=== PATIENT | female | born 1960 ===

== ENCOUNTER 2021-06-27 16:22 | Observation (INO) ==
[2021-06-27 20:13] LABS: Hematocrit (blood only) 46.6 % (37-47); Hemoglobin 14.9 g/dL (12.0-16.0); Mean Corpuscular Hemoglobin 28.4 pg (25-34); Mean Corpuscular Volume 88.9 fL (80-100); Mean Platelet Volume 10.8 fL (7.4-10.4); Platelet Count 333 K/uL (130-400); RDW Coefficient of Variation 13.9 % (11.5-14.5); RDW Standard Deviation 45.7 fL (36.4-46.3); Red Blood Count 5.24 M/uL (4.2-5.4); White Blood Count 22.67 K/uL (4.8-10.8)
[2021-06-27 20:44] LABS: Albumin Level 3.6 gm/dl (3.4-5.0); BUN Creatinine Ratio 12.4 (10-20); Calcium 9.9 mg/dl (8.5-10.1); Creatinine Clr Calc Pharmacy 72.8 ml/min; Est GFR (African American) 83.3 ml/min; Est GFR (Non-African American) 71.9 ml/min; Potassium 4.2 mmol/L (3.5-5.1)
[2021-06-27 20:46] LABS: Basophils # (auto) 0.01 K/uL (0-0.2); Immature Granulocytes # (auto) 0.08 K/uL (0.00-0.02); Immature Granulocytes % (auto) 0.4 %; Lymphocytes # (auto) 0.67 K/uL (1.2-3.4); Monocytes # (auto) 1.24 K/uL (0.11-0.59); Monocytes % (auto) 5.5 %; Neutrophils # (auto) 20.67 K/uL (1.4-6.5); Neutrophils % (auto) 91.1 %
[2021-06-27 20:47] LABS: Albumin Globulin Ratio 0.8 (0.9-2); Bilirubin,Total 0.8 mg/dl (0.2-1); Globulin 4.6 gm/dl (2.5-4.0); Total Protein 8.2 gm/dl (6.4-8.2)
--- NOTE | 2021-06-27 21:43 | Emergency Department Note ---
Impression & Plan Acute cholecystitis ED Provider Note NAME: MEKHI DAVID AGE: 60 SEX: F : 1960 ARRIVES VIA: Walk-In INFORMANT: patient, ED PROVIDER(S): Gagandeep Casarez MD Chief Complaint: Abdominal pain, nausea vomiting HPI: Patient does present with the above symptoms. The patient states that this initially started 2 days prior but it has gotten progressively worse is in the upper abdomen and is constant now. Patient describes it as burning. the patient initially had some diarrhea but subsequently had nausea and associated vomiting x2. No blood in the urine or vomit. The patient denies any alcohol or tobacco use. Patient vaccinated for Covid. Patient did have some chest pain with the burning abdominal pain in the upper abdomen. Patient did try some Tums but without improvement in symptoms. Patient does have a prior history of appendectomy but no other abdominal surgeries. Patient denies any recent changes in diet or sick contacts. Patient denies upper respiratory symptoms. Patient denies any rashes, dysuria, hematuria or leg swelling. ROS: See HPI for pertinent positives and negatives. A total of 10 systems were reviewed and otherwise negative. Past medical history: See below Surgical history: See below Social history: See below Physical Exam: GENERAL: Mildly uncomfortable appearance, wearing glasses, wearing a mask, non- toxic. EYE EXAM: Normal conjunctiva. PERRL, no anisocoria and EOM's grossly intact w/o pain. NECK: Supple, no nuchal rigidity, no adenopathy, non-tender. No signs of meningismus. LUNGS: Clear to auscultation. Normal chest wall mechanics. HEART: Tachycardic and regular, no MRG. ABDOMEN: Abdomen soft, right upper quadrant and epigastric pain without pe ritonitis, no lower abdominal pain, normo-active bowel sounds, no masses, no rebound or guarding. BACK: No CVA TTP. SKIN: No rashes and no bruising. UPPER EXTREMITIES: Upper extremities are grossly normal. LOWER EXTREMITIES: Grossly normal, no edema. NEURO EXAM: A&O x3, cranial nerves II-XII grossly intact, normal speech, moves all 4 extremities on command w/o issue. Differential diagnoses: Appendicitis, ovarian cyst, ovarian torsion, ectopic , TOA, PID, infections, diverticulitis, UTI, obstruction, mesenteric ischemia, aortic pathology, inflammatory bowel disease, renal colic, PUD, pancreatitis, biliary pathology, hernia, volvulus, constipation, as well as other pathologies. Course: Patient was seen and evaluated the bedside. Full history physical exam was performed. EKG interpreted by me Tachycardia, rate of 121, normal intervals, normal axis, no ST changes. Imaging Studies: See Below Cardiac monitoring: An order was placed for continuous cardiac monitoring. The monitor shows a rate of 115 with tachycardic and regular rhythm. MDM: Patient did present with concern for nausea vomiting. This is been ongoing since Saturday. Blood work was obtained along with a CT abdomen pelvis. Patient's blood work showed a white count of 22 with a normal H&H and platelet count. Kidney function was unremarkable. Patient did have a Covid swab completed and a CT abdomen pelvis was ordered. The patient does have concern for acute cholecystitis. I did speak with the on-call general surgeon Dr. Hickey. Stephaniesyn was ordered. The patient was seen and evaluated. The patient was subsequently taken to the operating room for treatment. Past Med/Surg History Medical History No pertinent past medical history Surgical History S/P appendectomy S/P TKR (total knee replacement) Social History Smoking Status: Never smoker Hx Alcohol Use: No Hx Substance Use: No Feels Safe at Home: Yes Allergies Allergies Allergy/AdvReac Type Severity Reaction Status Date / Time No Known Allergies Allergy Verified 06/27/21 22:35 Home Meds Home Medications Medication Instructions Recorded Confirmed multivitamin 1 tab PO DAILY 06/27/21 06/27/21 Results & Data (ED) Vital Signs Vital Signs - 24 hr 06/27/21 17:02 06/27/21 21:49 06/27/21 23:15 Temperature 36.8 C Temperature Source Temporal Artery Scan Pulse Rate 121 H Pulse Rate [Right] 114 H 123 H Respiratory Rate 18 16 16 Respiratory Effort / Characteristics Non-Labored Spontaneous Non-Labored Spontaneous Non-Labored Spontaneous Respiratory Depth Normal Normal Normal Blood Pressure 149/89 H Blood Pressure [Right Arm] 147/89 H 157/91 H Blood Pressure Mean 109 Blood Pressure Mean [Right Arm] 108 113 Blood Pressure Position Sitting Blood Pressure Position [Right Arm] Sitting Sitting Pulse Oximetry 97 98 98 Oxygen Delivery Method Room Air Room Air Room Air Sepsis Recent Fever Within 48 Hours No Sepsis New/Unexplained Change in Mental Status N/A Sepsis Action Taken by Nursing No Action Required 06/28/21 00:49 Temperature Temperature Source Pulse Rate Pulse Rate [Right] 112 H Respiratory Rate 16 Respiratory Effort / Characteristics Non-Labored Spontaneous Respiratory Depth Normal Blood Pressure Blood Pressure [Right Arm] 129/83 Blood Pressure Mean Blood Pressure Mean [Right Arm] 98 Blood Pressure Position Blood Pressure Position [Right Arm] Sitting Pulse Oximetry 98 Oxygen Delivery Method Room Air Sepsis Recent Fever Within 48 Hours Sepsis New/Unexplained Change in Mental Status Sepsis Action Taken by Snf Medications Current Medication List: was personally reviewed by me Laboratory Data Attestation: I reviewed the patient's lab results. Result diagrams: 06/27/21 20:00 06/27/21 20:00 Lab Results 06/27/21 06/27/21 06/27/21 Range/Units 20:00 20:00 23:15 WBC 22.67 H (4.8-10.8) K/uL RBC 5.24 (4.2-5.4) M/uL Hgb 14.9 (12.0-16.0) g/dL Hct 46.6 (37-47) % MCV 88.9 (80-100) fL MCH 28.4 (25-34) pg MCHC 32.0 (32-36) g/dL RDW Std Deviation 45.7 (36.4-46.3) fL RDW Coeff of Gena 13.9 (11.5-14.5) % Plt Count 333 (130-400) K/uL MPV 10.8 H (7.4-10.4) fL Immature Gran % (Auto) 0.4 % Neut % (Auto) 91.1 % Lymph % (Auto) 3.0 % [place] % (Auto) 5.5 % Eos % (Auto) 0.0 % Baso % (Auto) 0.0 % Neut # (Auto) 20.67 H (1.4-6.5) K/uL Lymph # (Auto) 0.67 L (1.2-3.4) K/uL [place] # (Auto) 1.24 H (0.11-0.59) K/uL Eos # (Auto) 0.00 (0-0.5) K/uL Baso # (Auto) 0.01 (0-0.2) K/uL Immature Gran # (Auto) 0.08 H (0.00-0.02) K/uL Sodium 136 (136-145) mmol/L Potassium 4.2 (3.5-5.1) mmol/L Chloride 100 (98-107) mmol/L Carbon Dioxide 28 (21-32) mmol/L Anion Gap 8.0 (3-11) BUN 11 (7-18) mg/dl Creatinine 0.87 (0.6-1.2) mg/dl Est Cr Clr Drug Dosing 72.8 ml/min Est GFR ( Amer) 83.3 ml/min Est GFR (Non-Af Amer) 71.9 ml/min BUN/Creatinine Ratio 12.4 (10-20) Glucose 148 H (70-99) mg/dl Calcium 9.9 (8.5-10.1) mg/dl Total Bilirubin 0.8 (0.2-1) mg/dl AST 16 (15-37) U/L ALT 27 (12-78) U/L Alkaline Phosphatase 102 (45-117) U/L Total Protein 8.2 (6.4-8.2) gm/dl Albumin 3.6 (3.4-5.0) gm/dl Globulin 4.6 H (2.5-4.0) gm/dl Albumin/Globulin Ratio 0.8 L (0.9-2) Lipase 75 (73-393) U/L Urine Color Urine Appearance (Clear) Urine pH (4.5-7.5) Ur Specific [place] (1.000-1.030) Urine Protein (Negative) Urine Glucose (UA) (Negative) Urine Ketones (Negative) Urine Blood (Negative) Urine Nitrite (Negative) Urine Bilirubin (Negative) Urine Urobilinogen (Negative) Ur Leukocyte Esterase (Negative) Urine WBC (Auto) (0-5) /hpf Urine RBC (Auto) (0-4) /hpf U Hyaline Cast (Auto) (0-5) /lpf U Epithel Cells (Auto) (0-5) /lpf Urine Bacteria (Auto) (Negative) COVID-19 Eval Order Covid19 at [facility] SARS-CoV-2 (PCR) (Negative) 06/27/21 06/28/21 Range/Units 23:15 00:00 WBC (4.8-10.8) K/uL RBC (4.2-5.4) M/uL Hgb (12.0-16.0) g/dL Hct (37-47) % MCV (80-100) fL MCH (25-34) pg MCHC (32-36) g/dL RDW Std Deviation (36.4-46.3) fL RDW Coeff of Gena (11.5-14.5) % Plt Count (130-400) K/uL MPV (7.4-10.4) fL Immature Gran % (Auto) % Neut % (Auto) % Lymph % (Auto) % [place] % (Auto) % Eos % (Auto) % Baso % (Auto) % Neut # (Auto) (1.4-6.5) K/uL Lymph # (Auto) (1.2-3.4) K/uL [place] # (Auto) (0.11-0.59) K/uL Eos # (Auto) (0-0.5) K/uL Baso # (Auto) (0-0.2) K/uL Immature Gran # (Auto) (0.00-0.02) K/uL Sodium (136-145) mmol/L Potassium (3.5-5.1) mmol/L Chloride (98-107) mmol/L Carbon Dioxide (21-32) mmol/L Anion Gap (3-11) BUN (7-18) mg/dl Creatinine (0.6-1.2) mg/dl Est Cr Clr Drug Dosing ml/min Est GFR ( Amer) ml/min Est GFR (Non-Af Amer) ml/min BUN/Creatinine Ratio (10-20) Glucose (70-99) mg/dl Calcium (8.5-10.1) mg/dl Total Bilirubin (0.2-1) mg/dl AST (15-37) U/L ALT (12-78) U/L Alkaline Phosphatase (45-117) U/L Total Protein (6.4-8.2) gm/dl Albumin (3.4-5.0) gm/dl Globulin (2.5-4.0) gm/dl Albumin/Globulin Ratio (0.9-2) Lipase (73-393) U/L Urine Color Dark Yellow Urine Appearance Clear (Clear) Urine pH 6.0 (4.5-7.5) Ur Specific [place] 1.025 (1.000-1.030) Urine Protein Trace H (Negative) Urine Glucose (UA) Negative (Negative) Urine Ketones 2+ H (Negative) Urine Blood Negative (Negative) Urine Nitrite Negative (Negative) Urine Bilirubin Negative (Negative) Urine Urobilinogen Negative (Negative) Ur Leukocyte Esterase Negative (Negative) Urine WBC (Auto) 1-5 (0-5) /hpf Urine RBC (Auto) 5-10 H (0-4) /hpf U Hyaline Cast (Auto) 1-5 (0-5) /lpf U Epithel Cells (Auto) >30 H (0-5) /lpf Urine Bacteria (Auto) Negative (Negative) COVID-19 Eval Order SARS-CoV-2 (PCR) NEGATIVE (Negative) Administered Medications Discontinued Medications Sodium Chloride (Nss 1000ml) 2,000 mls @ 999 mls/hr IV .Q2H1M ONE Stop: 06/27/21 23:52 Last Infusion: 06/28/21 00:19 Dose: 0 mls/hr Documented by: [id number] Admin: 06/27/21 22:17 Dose: 999 mls/hr Documented by: [id number] Piperacillin Sod/Tazobactam Sod (Zosyn) 4.5 gm in 120 mls @ 240 mls/hr IV NOW ONE Stop: 06/27/21 23:36 Last Infusion: 06/27/21 23:46 Dose: 0 mls/hr Documented by: [id number] Admin: 06/27/21 23:11 Dose: 240 mls/hr Documented by: [id number] Ioversol (Optiray 320 100ml) 94 ml IV ONCE ONE Stop: 06/27/21 21:49 Last Admin: 06/27/21 21:49 Dose: 1 ml Documented by: [id number] Morphine Sulfate (Morphine Sulfate 4 Mg/Ml 1 Ml Carp\Vial) 4 mg IV NOW STA Stop: 06/27/21 21:53 Last Admin: 06/27/21 22:18 Dose: 4 mg Documented by: [id number] Ondansetron HCl (Ondansetron Inj 2 Mg/Ml 2 Ml Vial) 4 mg IV NOW STA Stop: 06/27/21 21:53 Last Admin: 06/27/21 22:18 Dose: 4 mg Documented by: [id number] Imaging Data Radiologist's Impression: Stat read read shows concern for acute cholecystitis Discharge Plan Visit Data Chief Complaint: Pain (Generalized) Stated Complaint: ABD PAIN, CHEST PAIN ED Provider: Gagandeep Casarez Discharge Problem: Acute cholecystitis Forms Stand Alone Forms: [employer] [facility] [employer] Prescriptions Prescriptions: No Action multivitamin Tablet 1 tab PO DAILY RF: 0 Referrals Referrals: PCP,NO [Primary Care Provider] -
[2021-06-27] MEDS ORDERED: OPTIRAY 320 100ml IV ONE (21:48)
[2021-06-27] MEDS ORDERED: ONDANSETRON INJ 2 MG/ML 2 ML VIAL IV STA (21:52)
[2021-06-27] MEDS ORDERED: SODIUM CHLORIDE 0.9% 1000ML 2,000 ML IV ONE (21:52)
[2021-06-27] MEDS ORDERED: MoRPHine SULFATE 4 MG/ML 1 ML CARP\\VIAL IV STA (21:52)
[2021-06-27] MEDS ORDERED: PIPERACILLIN/TAZOBACTAM 4.5 GM/120 ML BAG IV ONE (23:07)
[2021-06-27] MEDS ORDERED: PIPERACILL/TAZOBAC CONSULT ACTIVE PRN (23:07)
--- NOTE | 2021-06-28 00:07 | History & Physical Report ---
Date of Service June 28, 2021 Assessment & Plan (1) Acute cholecystitis: Plan: 60-year-old woman with acute cholecystitis. I had a long discussion with her concerning gallbladder disease. I discussed the risks and benefits of a laparoscopic, possible open cholecystectomy. The risks include: Bleeding, infection, injury to the surrounding structures including bile duct, leak, obstruction, need for further open procedure, diarrhea. All her questions were answered, she is agreeable to proceed with surgery. We will place her on IV fluids, IV antibiotics, pain control. We will schedule her for the OR in the morning. 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 The pain is described as a severe burning. It was accompanied by nausea and vomiting x2. She denies fevers and chills. She has had an elevated pulse rate since Saturday. She denies changes in bowel habits. She denies chest pain or shortness of breath. She denies acholic stools, pruritus, jaundice. White blood cell count is 22. CT scan demonstrates acute cholecystitis with distended gallbladder and large stones. Allergies Allergy/AdvReac Type Severity Reaction Status Date / Time No Known Allergies Allergy Verified 06/27/21 22:35 Home Medications Medication Instructions Recorded Confirmed Type multivitamin 1 tab PO DAILY 06/27/21 06/27/21 History Past Med/Surg History Social History Smoking Status: Never smoker Feels Safe at Home: Yes Review of Systems Review of Systems: All systems reviewed & are unremarkable except as noted in HPI & below Physical Exam Constitutional: WD/WN, vitals as above Eyes: PERRL, conjunctivae normal, anicteric sclerae Neck: trachea midline, no thyromegaly Respiratory: normal respiratory effort; no respiratory distress and no labored breathing Cardiovascular: Rate/Rhythm: + tachycardic Gastrointestinal (Abdomen): Inspection/Auscultation: abdomen normal to inspection; abdomen not distended Percussion/Palpation: + abdomen tender (Mild tenderness in right upper quadrant) and abdomen soft; no guarding and abdomen not rigid Musculoskeletal: Extremities: no cyanosis and no clubbing Skin: no rashes, warm and dry Psychiatric: A+Ox3, euthymic affect Results & Data Results & Data ([facility]) Vital Signs (Past 12 Hours) Vital Signs Temp Pulse Pulse Resp BP BP Pulse Ox 06/27/21 23:15 123 H 16 157/91 H 98 06/27/21 21:49 114 H 16 147/89 H 98 06/27/21 17:02 36.8 C 121 H 18 149/89 H 97 Laboratory Results 06/27/21 06/27/21 06/27/21 Range/Units 23:15 23:15 20:00 WBC (4.8-10.8) K/uL RBC (4.2-5.4) M/uL Hgb (12.0-16.0) g/dL Hct (37-47) % MCV (80-100) fL MCH (25-34) pg MCHC (32-36) g/dL RDW Std Deviation (36.4-46.3) fL RDW Coeff of Gena (11.5-14.5) % Plt Count (130-400) K/uL MPV (7.4-10.4) fL Immature Gran % (Auto) % Neut % (Auto) % Lymph % (Auto) % [place] % (Auto) % Eos % (Auto) % Baso % (Auto) % Neut # (Auto) (1.4-6.5) K/uL Lymph # (Auto) (1.2-3.4) K/uL [place] # (Auto) (0.11-0.59) K/uL Eos # (Auto) (0-0.5) K/uL Baso # (Auto) (0-0.2) K/uL Immature Gran # (Auto) (0.00-0.02) K/uL Sodium 136 (136-145) mmol/L Potassium 4.2 (3.5-5.1) mmol/L Chloride 100 (98-107) mmol/L Carbon Dioxide 28 (21-32) mmol/L Anion Gap 8.0 (3-11) BUN 11 (7-18) mg/dl Creatinine 0.87 (0.6-1.2) mg/dl Est Cr Clr Drug Dosing 72.8 ml/min Est GFR ( Amer) 83.3 ml/min Est GFR (Non-Af Amer) 71.9 ml/min BUN/Creatinine Ratio 12.4 (10-20) Glucose 148 H (70-99) mg/dl Calcium 9.9 (8.5-10.1) mg/dl Total Bilirubin 0.8 (0.2-1) mg/dl AST 16 (15-37) U/L ALT 27 (12-78) U/L Alkaline Phosphatase 102 (45-117) U/L Total Protein 8.2 (6.4-8.2) gm/dl Albumin 3.6 (3.4-5.0) gm/dl Globulin 4.6 H (2.5-4.0) gm/dl Albumin/Globulin Ratio 0.8 L (0.9-2) Lipase 75 (73-393) U/L COVID-19 Eval Order Covid19 at [facility] SARS-CoV-2 (PCR) Pending 06/27/21 Range/Units 20:00 WBC 22.67 H (4.8-10.8) K/uL RBC 5.24 (4.2-5.4) M/uL Hgb 14.9 (12.0-16.0) g/dL Hct 46.6 (37-47) % MCV 88.9 (80-100) fL MCH 28.4 (25-34) pg MCHC 32.0 (32-36) g/dL RDW Std Deviation 45.7 (36.4-46.3) fL RDW Coeff of Gena 13.9 (11.5-14.5) % Plt Count 333 (130-400) K/uL MPV 10.8 H (7.4-10.4) fL Immature Gran % (Auto) 0.4 % Neut % (Auto) 91.1 % Lymph % (Auto) 3.0 % [place] % (Auto) 5.5 % Eos % (Auto) 0.0 % Baso % (Auto) 0.0 % Neut # (Auto) 20.67 H (1.4-6.5) K/uL Lymph # (Auto) 0.67 L (1.2-3.4) K/uL [place] # (Auto) 1.24 H (0.11-0.59) K/uL Eos # (Auto) 0.00 (0-0.5) K/uL Baso # (Auto) 0.01 (0-0.2) K/uL Immature Gran # (Auto) 0.08 H (0.00-0.02) K/uL Sodium (136-145) mmol/L Potassium (3.5-5.1) mmol/L Chloride (98-107) mmol/L Carbon Dioxide (21-32) mmol/L Anion Gap (3-11) BUN (7-18) mg/dl Creatinine (0.6-1.2) mg/dl Est Cr Clr Drug Dosing ml/min Est GFR ( Amer) ml/min Est GFR (Non-Af Amer) ml/min BUN/Creatinine Ratio (10-20) Glucose (70-99) mg/dl Calcium (8.5-10.1) mg/dl Total Bilirubin (0.2-1) mg/dl AST (15-37) U/L ALT (12-78) U/L Alkaline Phosphatase (45-117) U/L Total Protein (6.4-8.2) gm/dl Albumin (3.4-5.0) gm/dl Globulin (2.5-4.0) gm/dl Albumin/Globulin Ratio (0.9-2) Lipase (73-393) U/L COVID-19 Eval Order SARS-CoV-2 (PCR) Code Status & VTE Plan VTE Prophylaxis Plan VTE Prophylaxis will be ordered: Yes
[2021-06-28 00:33] LABS: Appearance Urine Clear (Clear); Bacteria Urine Automated Negative (Negative); Bilirubin Urine Negative (Negative); Blood Urine Negative (Negative); Color Urine Dark Yellow; Epithelial Cell Urine Auto >30 /lpf (0-5); Glucose Urine UA Negative (Negative); Ketones Urine 2+ (Negative); Leukocyte Esterase Urine Negative (Negative); Nitrite Urine Negative (Negative); Protein Urine Trace (Negative); Specific Gravity Urine 1.025 (1.000-1.030); Urobilinogen Urine Negative (Negative)
[2021-06-28] MEDS ORDERED: MoRPHine SULFATE 4 MG/ML 1 ML CARP\\VIAL IV PRN (02:32)
[2021-06-28] MEDS ORDERED: diphenhydrAMINE 50 MG/ML VIAL IV PRN (02:32)
[2021-06-28] MEDS ORDERED: PIPERACILL/TAZOBAC CONSULT ACTIVE PRN (02:32)
[2021-06-28] MEDS: ENOXAPARIN INJ 40 MG/0.4 ML SYR SQ SCH (03:26)
[2021-06-28] MEDS: LACTATED RINGER'S 1,000 ML IV SCH ×3 (03:26→22:24)
[2021-06-28] MEDS: PIPERACILLIN/TAZOBACTAM 3.375 GM in DEXTROSE 5% 100 ML IV SCH ×3 (03:26→22:24)
[2021-06-28 06:24] LABS: Basophils # (auto) 0.01 K/uL (0-0.2); Hematocrit (blood only) 41.7 % (37-47); Hemoglobin 13.4 g/dL (12.0-16.0); Immature Granulocytes # (auto) 0.05 K/uL (0.00-0.02); Immature Granulocytes % (auto) 0.2 %; Lymphocytes # (auto) 1.16 K/uL (1.2-3.4); Lymphocytes % (auto) 5.1 %; Mean Corpuscular Hemoglobin 28.5 pg (25-34); Mean Corpuscular Hgb Conc 32.1 g/dL (32-36); Mean Corpuscular Volume 88.5 fL (80-100); Mean Platelet Volume 11.1 fL (7.4-10.4); Monocytes # (auto) 1.56 K/uL (0.11-0.59); Monocytes % (auto) 6.9 %; Neutrophils # (auto) 19.81 K/uL (1.4-6.5); Neutrophils % (auto) 87.8 %; Platelet Count 284 K/uL (130-400); RDW Coefficient of Variation 14.2 % (11.5-14.5); RDW Standard Deviation 46.3 fL (36.4-46.3); Red Blood Count 4.71 M/uL (4.2-5.4); White Blood Count 22.59 K/uL (4.8-10.8)
[2021-06-28] MEDS ORDERED: ACETAMINOPHEN 1000 MG/100 ML IV IV ONE (06:31)
[2021-06-28 06:56] LABS: Albumin Level 2.7 gm/dl (3.4-5.0); BUN Creatinine Ratio 13.8 (10-20); Calcium 8.6 mg/dl (8.5-10.1); Creatinine Clr Calc Pharmacy 92.7 ml/min; Est GFR (African American) 109.4 ml/min; Est GFR (Non-African American) 94.4 ml/min; Potassium 3.6 mmol/L (3.5-5.1)
[2021-06-28 06:59] LABS: Albumin Globulin Ratio 0.7 (0.9-2); Bilirubin,Total 1.1 mg/dl (0.2-1); Total Protein 6.7 gm/dl (6.4-8.2)
--- NOTE | 2021-06-28 07:58 | CT Scan Report ---
CT abd pelvis IV con only CLINICAL HISTORY: upper ab pain COMPARISON STUDY: None. TECHNIQUE: A dose lowering technique was utilized adhering to the principles of ALARA. CT DOSE: 705.03 mGy.cm FINDINGS: Lower chest: Limited evaluation of lung bases shows slight atelectasis at dependent portions of bilat eral lungs as well as lingula and right middle lobe.. Liver: Liver is normal in size with mild diffuse decrease in attenuation of its parenchyma. No intrah epatic biliary ductal dilatation seen. Few hypoattenuating lesions are seen within left lobe of the l iver, largest is measuring 2.1 cm , this lesions statistically most likely represent cysts or maribell iomas. Gallbladder: Is fluid-filled and dilated. Multiple calculi are seen within gallbladder lumen measurin g up to 2.3 cm in size. Mild pericholecystic edema and gallbladder wall thickening is seen. Findings are consistent with acute cholecystitis. Spleen: Normal in size and attenuation. Pancreas: Unremarkable. Adrenal glands: Unremarkable. Kidneys: There is symmetric renal cortical enhancement. The kidneys are normal in size without hydron ephrosis. Pelvic viscera: The bladder, and pelvic viscera are unremarkable. Bowel: The small bowel and colon are normal in course and caliber. Appendix is nondilated. Small amou nt of free fluid is seen within right lower quadrant likely due to extension of inflammatory collecti on from cholecystitis. Peritoneum: There is no intraperitoneal free air or abdominal ascites. Vasculature: The abdominal aorta is normal in course and caliber. Adenopathy: None. Skeletal structures: No significant degenerative changes are seen. No definite aggressive lesions dem onstrated. IMPRESSION: 1. Cholelithiasis. Acute cholecystitis. Mild pericholecystic edema which appear to be extended to th e right lower quadrant. Attention on follow-up imaging. 2. Multiple hypoattenuating lesions within left lobe of the liver, statistically most likely represe nt cysts or hemangiomas. Attention on follow-up imaging. 3. Nondilated loops of bowel. 4. The rest of findings as above. ACT 112: Negative or not required by law. The above report was generated using voice recognition software. It may contain grammatical, syntax o r spelling errors. Electronically signed by: Tiera Andrade DO 06/28/2021 7:57 AM
[2021-06-28] MEDS ORDERED: PROPOFOL IV EMULSION 10 MG/ML 20 ML VIAL IV ONE ×2 (08:09→11:02)
[2021-06-28] MEDS ORDERED: DEXAMETHASONE SOD INJ 4 MG/ML VIAL ONE ×2 (08:09→11:02)
[2021-06-28] MEDS ORDERED: ROCURONIUM BROMIDE 10 MG/ML 5 ML VIAL IV ONE ×2 (08:09→11:02)
[2021-06-28] MEDS ORDERED: LIDOCAINE 2% 2 ML VIAL/AMP(20MG/ML) INFIL ONE ×2 (08:09→11:02)
[2021-06-28] MEDS ORDERED: ONDANSETRON INJ 2 MG/ML 2 ML VIAL ONE ×2 (08:09→11:02)
[2021-06-28] MEDS ORDERED: fentaNYL citrate 100 MCG/2 ML VIAL ONE ×3 (08:10→13:58)
[2021-06-28] MEDS ORDERED: MIDAZOLAM HCL 1 MG/ML 2ML VIAL ONE ×2 (08:10→10:59)
[2021-06-28] MEDS ORDERED: LARYING-O-JET KIT (LTA) ONE (08:11)
--- NOTE | 2021-06-28 10:46 | Anesthesiology Consultation ---
Date of Service June 28, 2021 Assessment & Plan (1) Encounter for pre-operative examination: Chart Review Chart Review: Acceptable Risk for Surgery and Patient NOT seen in Pre Admission Testing Consults Requested none History Surgery Operation Date: 06/28/21 09:40 Proposed Procedures p Laparoscopic Cholecystectomy - Arnold Hickey MD Height/Weight Height: 5 ft 4 in Weight: 87 kg Allergies Allergy/AdvReac Type Severity Reaction Status Date / Time No Known Allergies Allergy Verified 06/27/21 22:35 Medications Home Medications Medication Instructions Recorded Confirmed Last Taken multivitamin 1 tab PO DAILY 06/27/21 06/27/21 06/27/21 Active Medications Generic Name Dose Route Start Last Admin Trade Name Freq PRN Reason Stop Dose Admin Enoxaparin Sodium 40 mg 06/28/21 03:15 06/28/21 03:26 Enoxaparin Inj 40 Mg/0.4 Ml Syr SQ 07/28/21 03:14 40 mg DAILY ROS Administration Lactated Ringer's 1,000 mls @ 100 mls/hr 06/28/21 02:32 06/28/21 03:26 Lr IV 07/28/21 02:31 100 mls/hr .Q10H ROS Administration Piperacillin Sod/Tazobactam 115 mls @ 28.75 mls/hr 06/28/21 04:00 06/28/21 07:28 Sod 3.375 gm/ Dextrose IV 07/08/21 03:59 Infused Q8H ROS Infusion Protocol NPO Date Last Intake of Fluids: 06/28/21 Time Last Intake of Fluids: 02:00 Date Last Intake of Solids: 06/26/21 Time Last Intake of Solids: 00:00 Past Medical History Medical History No pertinent past medical history Exercise / Class Metabolic Activity II 4-5 Yardwork/Stairs/Walk up hill Past Surgical History Surgical History S/P appendectomy S/P TKR (total knee replacement) Past Anesthesia History No Hx of Anesthesia Complications and No Family Hx of Anesthesia Complications History of PONV No Hx of PONV and No Hx of Motion Sickness Social History Smoking Status: Never smoker Do You Dip or Chew Tobacco: No Hx Alcohol Use: No Hx Substance Use: No Physical Exam Vital Signs Last Vital Signs Temp 37.1 C 06/28/21 10:35 Pulse 122 H 06/28/21 10:35 Resp 18 06/28/21 10:35 BP 136/87 06/28/21 10:35 Pulse Ox 92 06/28/21 10:35 Testing Laboratory Results 06/28/21 05:47 06/28/21 05:47 Urine Color Dark Yellow 06/28/21 00:00 Urine Appearance Clear (Clear) 06/28/21 00:00 Urine pH 6.0 (4.5-7.5) 06/28/21 00:00 Ur Specific [place] 1.025 (1.000-1.030) 06/28/21 00:00 Urine Protein Trace (Negative) H 06/28/21 00:00 Urine Glucose (UA) Negative (Negative) 06/28/21 00:00 Urine Ketones 2+ (Negative) H 06/28/21 00:00 Urine Nitrite Negative (Negative) 06/28/21 00:00 Ur Leukocyte Esterase Negative (Negative) 06/28/21 00:00 Urine WBC (Auto) 1-5 /hpf (0-5) 06/28/21 00:00 Urine RBC (Auto) 5-10 /hpf (0-4) H 06/28/21 00:00 U Hyaline Cast (Auto) 1-5 /lpf (0-5) 06/28/21 00:00 U Epithel Cells (Auto) >30 /lpf (0-5) H 06/28/21 00:00 Urine Bacteria (Auto) Negative (Negative) 06/28/21 00:00
[2021-06-28] MEDS ORDERED: HYDROmorphone INJ 1 MG/ML SYRINGE IV PRN (10:53)
[2021-06-28] MEDS ORDERED: ePHEDrine sulfate 50 MG/ML AMP IV PRN (10:53)
[2021-06-28] MEDS ORDERED: ATROPINE SULFATE 0.1 MG/ML 10ML SYR IV PRN (10:53)
[2021-06-28] MEDS ORDERED: fentaNYL citrate 100 MCG/2 ML VIAL IV PRN (10:53)
[2021-06-28] MEDS ORDERED: ONDANSETRON INJ 2 MG/ML 2 ML VIAL IV PRN (10:53)
[2021-06-28] MEDS ORDERED: SCOPOLAMINE 1 MG TDSY TD ONE ×2 (10:53→10:54)
[2021-06-28] MEDS ORDERED: PROMETHAZINE HCL 12.5 MG in SODIUM CHLORIDE 0.9% 50 ML IV PRN (10:53)
[2021-06-28] MEDS ORDERED: METOCLOPRAMIDE HCL INJ 5 MG/ML 2 ML VIAL ONE (11:02)
[2021-06-28] MEDS ORDERED: diphenhydrAMINE 50 MG/ML VIAL ONE (11:02)
[2021-06-28] MEDS ORDERED: FAMOTIDINE/PF 20 MG/2 ML VIAL IV ONE (11:04)
[2021-06-28] MEDS ORDERED: EPINEPHrine INJ 1 MG/ML AMP ONE (11:10)
[2021-06-28] MEDS ORDERED: BUPIVACAINE 0.25% 30 ML VIAL ONE (11:10)
[2021-06-28] MEDS ORDERED: SODIUM CHLORIDE 0.9% INJ 10 ML VIAL ONE (11:22)
[2021-06-28] MEDS ORDERED: NEOSTIGMINE METHYLSULFATE 1 MG/ML 10ML VIAL ONE (13:14)
[2021-06-28] MEDS ORDERED: GLYCOPYRROLATE 0.2 MG/ML VIAL ONE (13:14)
[2021-06-28] MEDS ORDERED: SURGICEL ABSORB HEMOSTAT 2IN X 14IN TOP ONE (13:16)
--- NOTE | 2021-06-28 13:44 | Post Operative Brief Note ---
Immediate Post Op Note v1 Date of Surgery June 28, 2021 Pre & Post Diagnosis Operation Date: 06/28/21 09:40 Pre-Op Diagnosis: Acute Cholecystitis Post-Op Diagnosis: Acute Cholecystitis I identified the patient and participated in the time-out.: Yes Procedure Operation Date: 06/28/21 09:40 Actual Procedures p Laparoscopic Cholecystectomy(Not Applicable) - Arnold Hickey MD Surgeon Arnold Hickey MD Matt[employer] Filling Machine Tender GUME Garcia, assisted with tissue retraction, camera operation, closure Estimated Blood Loss 15 Findings Consistent with Post-Op Diagnosis Severe acute cholecystitis; 5 cm gallstone; severe acute inflammation
--- NOTE | 2021-06-28 13:48 | Operative Report ---
Post Operative Report Pre & Post Diagnosis Operation Date: 06/28/21 09:40 Pre-Op Diagnosis: Acute Cholecystitis Post-Op Diagnosis: Acute Cholecystitis I identified the patient and participated in the time-out.: Yes Procedure Operation Date: 06/28/21 09:40 Actual Procedures p Laparoscopic Cholecystectomy(Not Applicable) - Arnold Hickey MD Surgeon Arnold Hickey MD Senior Software Developer GUME Garcia, assisted with tissue retraction, camera operation, closure Estimated Blood Loss 15 Findings Consistent with Post-Op Diagnosis Severe acute inflammation; 5 cm gallstone; severe acute cholecystitis Specimens Gallbladder Anesthesia Type General Complications No immediate complications Indications Acute cholecystitis Description of Procedure The patient was taken to the operating room, and placed supine on the operating table. A timeout was performed, perioperative antibiotics were administered, SCD boots were placed. After adequate anesthesia and analgesia was obtained, the abdomen was prepped and draped in the normal sterile fashion. Local anesthetic was injected into and around the proposed incision sites. An incision was made with a 15 blade scalpel in the supraumbilical region and carried down to the level of the fascia. The fascia was grasped with a trach hook, and a varies needle was used to enter the abdominal cavity. The abdomen was insufflated to a pressure of 15 mmHg, and a 11 mm trocar was placed in this location. A 10 mm, 30 degree laparoscope was placed into the abdominal cavity, and the abdomen was surveyed. There was significant inflammatory reaction in the right upper quadrant with the colon adhesed to the liver over the gallbladder. There was murky fluid in the right upper quadrant behind the liver. Two 5 mm trochars were placed along the right costal margin, and one 5 mm trocar was placed in the subxiphoid region under direct visualization. With gentle blunt dissection and judicious use of the electrocautery, the gallbladder was exposed by taking down the colon and omental adhesions. The gallbladder was very distended and taut. It was unable to be grasped. An 18-gauge aspiration needle was used to aspirate the gallbladder contents. The gallbladder was grasped and retracted cephalad and laterally, exposing the triangle of Calot. There was a very large stone contained in the neck of the gallbladder causing significant inflammatory reaction. Careful dissection began in the triangle with a combination of blunt dissection with the [place] dissector, and judicious use of the hook cautery. The cystic duct and cystic artery were dissected free circumferentially, and a critical view of safety was obtained. The cystic duct and cystic artery were clipped and transected, and the gallbladder was removed from the gallbladder fossa with the hook cautery. The camera was switched to a 5 mm, the gallbladder was placed in an Endo Catch bag, and removed via the supraumbilical port site. The camera was switched back to the 10 mm camera, and the abdomen was surveyed again. Hemostasis was checked and was affected with Bovie electrocautery as well as Surgicel placement. The abdomen was copiously irrigated and suctioned free. Again hemostasis was checked and was excellent. All trochars were removed under direct visualization. The abdomen was desufflated. The fascia in the 11 mm port site was closed with a 0 Vicryl sut ure. The skin was closed with a running 4-0 Monocryl subcuticular stitch. Dermabond was applied. The patient tolerated the procedure without complication, and was transferred in stable condition to the PACU. All instrument, needle, and sponge counts were correct at the end of the case. I attest to the content of the Intraoperative Record and any orders documented therein. Any exceptions are noted below.
[2021-06-28] MEDS: CHECK SCOPOLAMINE PATCH PLACEMENT SCH ×2 (15:53→22:28)
--- NOTE | 2021-06-28 15:57 | Anesthesiology Progress Note ---
Date of Service June 28, 2021 Anesthesia Post Procedure Vital Signs Vital Signs: Temp Pulse Pulse Pulse Pulse Resp BP 06/28/21 15:30 36.6 C 106 H 16 06/28/21 15:00 37.0 C 106 H 18 06/28/21 14:40 37.3 C 107 H 21 06/28/21 14:30 115 H 28 H 06/28/21 14:20 111 H 18 06/28/21 14:10 109 H 19 06/28/21 14:01 37.2 C 119 H 15 06/28/21 10:35 37.1 C 122 H 18 06/28/21 07:32 37.5 C 124 H 18 06/28/21 02:45 37.0 C 128 H 16 06/28/21 01:44 119 H 16 138/71 06/28/21 00:49 112 H 16 06/27/21 23:15 123 H 16 06/27/21 21:49 114 H 16 06/27/21 17:02 36.8 C 121 H 18 149/89 H BP BP Pulse Ox 06/28/21 15:30 112/75 96 06/28/21 15:00 100/69 93 06/28/21 14:40 130/78 95 06/28/21 14:30 130/85 96 06/28/21 14:20 113/79 92 06/28/21 14:10 115/78 93 06/28/21 14:01 121/79 95 06/28/21 10:35 136/87 92 06/28/21 07:32 134/83 95 06/28/21 02:45 112/78 96 06/28/21 01:44 98 06/28/21 00:49 129/83 98 06/27/21 23:15 157/91 H 98 06/27/21 21:49 147/89 H 98 06/27/21 17:02 97 Pain Intensity Abdomen: Pain Intensity: 2 Transfer of Care Handoff Completed per policy Notes Mental Status: alert / awake / arousable and participated in evaluation Patient Amnestic to Procedure: Yes Nausea / Vomiting: adequately controlled Pain: adequately controlled Airway Patency, RR, SpO2: stable & adequate BP & HR: stable & adequate Hydration State: stable & adequate Anesthetic Complications: no major complications apparent and Pt Satisfied with anesthetic care
--- NOTE | 2021-06-29 05:09 | Electrocardiogram Report ---
Test Reason : Blood Pressure : / mmHG Vent. Rate : 116 BPM Atrial Rate : 116 BPM P-R Int : 146 ms QRS Dur : 064 ms QT Int : 320 ms P-R-T Axes : 070 034 035 degrees QTc Int : 444 ms Sinus tachycardia Possible Left atrial enlargement Borderline ECG No previous ECGs available Confirmed by Feliciano Pimentel ([id number]) on 06/29/2021 5:09:00 AM Referred By: REFERRED SELF Confirmed By:Feliciano Pimentel
--- NOTE | 2021-06-29 05:12 | Electrocardiogram Report ---
Test Reason : Blood Pressure : / mmHG Vent. Rate : 121 BPM Atrial Rate : 121 BPM P-R Int : 146 ms QRS Dur : 066 ms QT Int : 320 ms P-R-T Axes : 060 008 015 degrees QTc Int : 454 ms Sinus tachycardia Otherwise normal ECG When compared with ECG of 27-JUN-2021 17:12, No significant change was found Confirmed by Feliciano Pimentel ([id number]) on 06/29/2021 5:12:45 AM Referred By: REFERRED SELF Confirmed By:Feliciano Pimentel
[2021-06-29] MEDS: ENOXAPARIN INJ 40 MG/0.4 ML SYR SQ SCH (05:26)
[2021-06-29] MEDS: PIPERACILLIN/TAZOBACTAM 3.375 GM in DEXTROSE 5% 100 ML IV SCH (06:35)
[2021-06-29] MEDS: oxyCODONE/ACETAMINOPHEN 5mg/325mg TAB PO PRN ×2 (08:44→13:25)
[2021-06-29] MEDS: CHECK SCOPOLAMINE PATCH PLACEMENT SCH (08:48)
[2021-06-29] MEDS ORDERED: ACETAMINOPHEN 325 MG TAB PO PRN (09:06)
[2021-06-29 09:37] LABS: Hematocrit (blood only) 37.3 % (37-47); Hemoglobin 11.9 g/dL (12.0-16.0); Immature Granulocytes # (auto) 0.04 K/uL (0.00-0.02); Immature Granulocytes % (auto) 0.2 %; Lymphocytes # (auto) 0.88 K/uL (1.2-3.4); Lymphocytes % (auto) 4.7 %; Mean Corpuscular Hemoglobin 27.9 pg (25-34); Mean Corpuscular Hgb Conc 31.9 g/dL (32-36); Mean Corpuscular Volume 87.4 fL (80-100); Mean Platelet Volume 11.1 fL (7.4-10.4); Monocytes # (auto) 0.84 K/uL (0.11-0.59); Monocytes % (auto) 4.5 %; Neutrophils # (auto) 16.77 K/uL (1.4-6.5); Neutrophils % (auto) 90.6 %; Platelet Count 248 K/uL (130-400); RDW Coefficient of Variation 14.2 % (11.5-14.5); RDW Standard Deviation 45.7 fL (36.4-46.3); Red Blood Count 4.27 M/uL (4.2-5.4); White Blood Count 18.53 K/uL (4.8-10.8)
[2021-06-29] MEDS: LACTATED RINGER'S 1,000 ML IV SCH (10:12)
[2021-06-29 10:18] LABS: Albumin Level 2.2 gm/dl (3.4-5.0); Calcium 8.7 mg/dl (8.5-10.1); Potassium 3.7 mmol/L (3.5-5.1)
[2021-06-29 10:33] LABS: BUN Creatinine Ratio 17.8 (10-20); Creatinine Clr Calc Pharmacy 81.9 ml/min; Est GFR (African American) 96.6 ml/min; Est GFR (Non-African American) 83.3 ml/min
[2021-06-29 10:45] LABS: Albumin Globulin Ratio 0.6 (0.9-2); Bilirubin,Total 0.3 mg/dl (0.2-1); Globulin 3.9 gm/dl (2.5-4.0); Total Protein 6.1 gm/dl (6.4-8.2)
--- NOTE | 2021-06-29 11:18 | Discharge Summary ---
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 The pain is described as a severe burning. It was accompanied by nausea and vomiting x2. She denies fevers and chills. She has had an elevated pulse rate since Saturday. She denies changes in bowel habits. She denies chest pain or shortness of breath. She denies acholic stools, pruritus, jaundice. White blood cell count is 22. CT scan demonstrates acute cholecystitis with distended gallbladder and large stones. Principal Diagnosis Acute calculous cholecystitis Discharge Exam Constitutional WD/WN, vitals as above no acute distress and not ill appearing Respiratory normal respiratory effort; no respiratory distress, no labored breathing and no retractions Gastrointestinal (Abdomen) Inspection/Auscultation: abdomen normal to inspection and + abdominal surgical incision (clean,dry,intact with dermabond); abdomen not distended Percussion/Palpation: + abdomen tender (at incision sites) and abdomen soft; no guarding and abdomen not rigid Skin no rashes, warm and dry Psychiatric A+Ox3, euthymic affect Discharge Data Allergies Allergy/AdvReac Type Severity Reaction Status Date / Time No Known Allergies Allergy Verified 06/27/21 22:35 Consultations 06/27/21 23:17 ED Decision to Admit Stat Procedures Performed Operation Date: 06/28/21 09:40 Actual Procedures p Laparoscopic Cholecystectomy(Not Applicable) - Arnold Hickey MD Ordered Studies 06/27/21 21:45 CT abd pelvis IV con only Urgent Hospital Course (1) Acute cholecystitis: Patient was taken to operating room for laparoscopic cholecystectomy and found to have severe acute cholecystitis with large gallstone measuring 2.0 inches. Patient tolerated procedure well and was transferred to recovery then to medical/surgical floor for postop care. IV fluids were continued, IV Zosyn continued, IV Morphine with PO Percocet as needed for pain, activity as tolerated, and regular diet. POD # 1 afebrile, vitals stable, postop pain moderate and controlled, no nausea or vomiting. T. bili normalized, lfts wnl. Leukocytosis improved to 18K from 22K preoperatively. Patient was discharged home on POD # 1 in stable condition. Was given 3 day course of Augmentin on discharge. F/u in surgery in 1 week. Total Time Total Time Spent Total Time Spent (In Minutes): 30 Total Time Includes: Examination of the Patient, Discharge Planning and Medication Reconciliation Discharge Plan Discharge Items Patient Disposition: Home - Self-Care Reason For Visit: ACUTE CHOLECYSTITIS Discharge Diagnosis: Acute calculous cholecystitis Activity: Per Instructions section Non-emergency contact: Surgeon Call non-emergency contact if: your pain is not controlled, your pain is worsening, your pain is concerning for you, you have a fever, your temperature is above 101, your wound has increased redness, your wound has increased drainage and your wound pain has increased Follow-up/Referrals: Arnold Hickey MD [Physician] - 07/07/21 3:00 pm PCP,NO [Primary Care Provider] - Diet: Regular Addtl Attending Provider Instructions: Post-Surgical ~Discharge Instructions Activity Recommendations: - lifting limitation: (20 pounds for 2 weeks), - exercise/sex/sports limit: (nonstrenuous for 2 weeks), - driving or machine use limit: (none for 1 week, until pain free, or no longer taking narcotic pain medication), - Shower/bathe limit: (may shower) Diet: - Resume previous diet SPECIAL CARE INSTRUCTIONS: - May shower. Let water run over area and pat dry. No submerging incisions underwater for 2 weeks (bathing, swimming, hot tubs) - Surgical glue will fall off on its own. - Call the surgeon's office with any questions or concerns - - (ex. temperature higher than 101 degrees F, excessive bleeding or pain). MEDICATIONS: - Resume previous medications unless instructed otherwise by your surgeon. - You may alternate extra strength Tylenol and Ibuprofen as need for mild pain - 650 mg Tylenol every 6 hours as needed - Ibuprofen 600 mg every 6 hours as needed (take with food) - Percocet 1 every 4 hours, as needed for moderate to severe pain - Recommend daily stool softener (Colace) while taking narcotic pain medication to prevent constipation or straining. FOLLOW UP VISIT: - Scheduled for follow-up with Dr. Hickey Saturday07/07/2021 at 3:00 pm Office number Pending Studies at Discharge: Yes (gallbladder pathology) Stand-Alone Forms: [employer], Opioid Pain Management, Smoking Cessation Medications and DC Order Prescriptions: New oxycodone-acetaminophen [Percocet] 5-325 mg tablet 1 tab PO Q4H PRN (Reason: pain) Qty: 5 RF: 0 amoxicillin-pot clavulanate 875-125 mg tablet 1 tab PO BID Qty: 6 RF: 0 Continued multivitamin Tablet 1 tab PO DAILY RF: 0 Discharge Orders: Discharge Order (Routine); Ordered 06/29/21 Ordered By: Roxane Garcia Admission Data Admit Date/Time: 06/27/21 23:46 Attending Provider: Arnold Hickey Admit Provider: Arnold Hickey Primary Care Provider: PCP,NO Other Providers: Arnold Hickey
== END 2021-06-29 15:08 | disposition home or self-care (01) ==
LOC: 3N 16:22 → ED 16:22 → 3N 06-28 01:44